=== PATIENT | female | born 1995 | race Caucasian/White ===

== ENCOUNTER 2020-01-07 03:07 | Emergency (ER) | payer OTHER ==
[~2020-01-07] VITALS: Ht 165.1 cm; Wt 50.0 kg
[2020-01-07] MEDS ORDERED: LEVOTHYROXIN75 MCG PO (03:50)
[2020-01-07] MEDS ORDERED: AUGMENTIN500TAB PO (03:50)
[2020-01-07] MEDS ORDERED: CODEINE/GUAIFEN1 SOL PO (04:28)
[2020-01-07 05:00] VITALS: BP 106/73
== END 2020-01-07 05:55 | disposition home or self-care (01) | DRG 153 ==
LOC: ED 03:07 → EDBD 03:07 → ED 04:20
DX: J06.9 Acute upper respiratory infection, unspecified (principal)